=== PATIENT | male | born 1940 | race Hispanic/Latino ===

== ENCOUNTER → 2018-05-25 | Outpatient (CLI) | payer OTHER ==
[~2018-05-25] MED LIST: GADODIAMIDE 10 MMOL/20 ML ML IV ONE
== END | disposition home or self-care (01) ==
LOC: RAH 07:29
PROVIDERS: ATTEND Family Medicine
DX: I67.82 Cerebral ischemia (principal)
CPT/HCPCS: 70553; A9579

== ENCOUNTER 2020-01-17 18:10 | Emergency (ER) | payer OTHER ==
[~2020-01-17 18:10] MED LIST changes: +0.9% SODIUM CHLORIDE 500 ML IV BAG IV ONE; -GADODIAMIDE 10 MMOL/20 ML ML IV ONE
[2020-01-17] MEDS ORDERED: ONDANSETRON HCL 4 MG/2 ML VIAL ONE (19:23)
[2020-01-17 19:50] LABS: BASOPHILS % (AUTO) 0.3 % (0.0-5.0); EOSINOPHILS % (AUTO) 0.5 % (0.0-8.0); HEMATOCRIT 38.8 % (42-54); LYMPHOCYTES % (AUTO) 9.1 % (21.0-51.0); MEAN CORPUSCULAR HEMOGLOBIN 31.6 pg (27.0-33.0); MEAN CORPUSCULAR HGB CONC 33.5 g/dL (32.0-36.0); MEAN CORPUSCULAR VOLUME 94.2 fL (79-99); MONOCYTES % (AUTO) 5.4 % (3.0-13.0); NEUTROPHILS % (AUTO) 84.2 % (40.0-77.0); PLATELET COUNT (AUTO) 149 K/uL (130-400); RED BLOOD CELL COUNT(AUTO) 4.12 MIL/uL (4.50-6.20); RED CELL DISTRIBUTION WIDTH 12.8 % (11.0-15.5); WHITE BLOOD COUNT (AUTO) 10.1 K/uL (4.8-10.8)
[2020-01-17 20:01] LABS: CREATININE 1.1 mg/dL (0.5-1.5)
[2020-01-17 20:02] LABS: INR 0.93 (0.85-1.15); PROTHROMBIN TIME 10.1 SEC (9.6-11.6)
[2020-01-17 20:04] LABS: ALBUMIN 4.4 g/dL (3.5-5.0); BILIRUBIN,TOTAL 0.4 mg/dL (0.2-1.0); TOTAL PROTEIN, SERUM 8.1 g/dL (6.0-8.3)
[2020-01-17 20:47] LABS: APPEARANCE,URINE Clear (CLEAR); BILIRUBIN,URINE Negative (NEGATIVE); COLOR,URINE Yellow (YELLOW); GLUCOSE, URINE (UA) 500 mg/dL (NEGATIVE); KETONES,URINE 15 mg/dL (NEGATIVE); LEUKOCYTE ESTERASE ,URINE Negative (NEGATIVE); NITRATE,URINE Negative (NEGATIVE); OCCULT BLOOD,URINE Negative (NEGATIVE); PH,URINE 6.5 (5.0-8.0); PROTEIN,URINE POS 2+ mg/dL (NEGATIVE); UROBILINOGEN,URINE 0.2 mg/dL (0.2-1.0)
[2020-01-17 20:56] LABS: BACTERIA,URINE Rare /HPF (None Seen); MUCUS,URINE Few LPF (None Seen); SQUAMOUS EPITHELIAL CELL,UR 0-2 /HPF (0-2); WBC,URINE 0-1 /HPF (0-1)
== END 2020-01-17 21:34 | disposition home or self-care (01) ==
LOC: EDH 18:10
DX: E86.0 Dehydration (principal); R11.2 Nausea with vomiting, unspecified; E11.9 Type 2 diabetes mellitus without complications; I10 Essential (primary) hypertension; E78.00 Pure hypercholesterolemia, unspecified
CPT/HCPCS: 36415; 80053; 81001; 82010; 82550; 82948; 83690; 84484; 85025; 85610; 85730; 93005; 96361; 96374; 99284; J2405; J7040

== ENCOUNTER → 2024-08-30 | Outpatient (CLI) | payer OTHER ==
[~2024-08-30] MED LIST changes: -0.9% SODIUM CHLORIDE 500 ML IV BAG IV ONE; +ONDA-243 PO
--- NOTE | 2024-08-30 13:45 | NUR ---
[facility] (OUTPATIENT) COMPLETED Silent aspiration with thin liquids; aspiration with pudding thick textures with weak and delayed cough. Recommend continued NPO and PEG tube feedings. NEEDLE GRINDER reviewed results and recommendations with patient and daughter. NEEDLE GRINDER educated patient and family on risks and consequences of aspiration. Speech therapy warranted at this time as outpatient. All questions answered. Addendum: 08/30/24 at 1527 by FADY FOLEY Amended: Links added.
--- NOTE | 2024-08-30 16:11 | HMCIMG ---
MODIFIED BARIUM SWALLOW W CINE INDICATION: FEEDING DIFFICULTIES, UNSPECIFED FINDINGS: Fluoroscopic assistance was provided to the speech pathologist while performing examination. For findings and dietary recommendations, refer to speech pathologist's report. FLUORO TIME: 1 minute IMPRESSION: Modified barium swallow as described.
== END | disposition home or self-care (01) ==
LOC: RAH 12:42
PROVIDERS: ATTEND Internal Medicine Gastroenterology
DX: R13.11 Dysphagia, oral phase (principal); R63.30 Feeding difficulties, unspecified
CPT/HCPCS: 74230; 92611

== ENCOUNTER → 2024-11-13 | Outpatient (CLI) | payer OTHER ==
[~2024-11-13] MED LIST changes: +DIATR MEGLU/DIATRIZOATE SODIUM 30 ML BOTTLE ONE
--- NOTE | 2024-11-13 12:50 | HMCIMG ---
Exam Type: ABD 1VW Clinical Information: GASTROSTOMY STATUS Comparison: None Findings: XR Eval Gastrostomy Perc W/ Contrast TECHNIQUE: Single view of the abdomen was obtained. 30 cc of Gastrografin injected through the gastric tube. Contrast outlines the stomach and small bowel. There is no evidence of extravasation. Bowel gas pattern is otherwise unremarkable. IMPRESSION: Gastric tube in good position within the stomach.
== END | disposition home or self-care (01) ==
LOC: RAH 11:37
PROVIDERS: ATTEND Internal Medicine Gastroenterology
DX: R63.30 Feeding difficulties, unspecified (principal); K31.A15 Gastric intestinal metaplasia without dysplasia, involving multiple sites; Z93.1 Gastrostomy status
CPT/HCPCS: 74018; Q9963